=== PATIENT | female | born 1980 | race Caucasian/White ===

== ENCOUNTER 2020-10-04 15:25 | Inpatient (IN) | payer BC ==
[2020-10-04 16:39] VITALS: BMI 29.0
[2020-10-04] MEDS ORDERED: AMPICILLIN - 2 GM in SODIUM CHLORIDE 100 ML IVPB ONE (16:55)
[2020-10-04] MEDS ORDERED: DINOPROSTONE 10 MG VAGINAL SUPPOSITORY VG ONE (17:04)
[2020-10-04] MEDS ORDERED: AMPICILLIN SODIUM 2 GM VIAL ONE (17:04)
[2020-10-04] MEDS ORDERED: SODIUM CHLORIDE 100 ML IVPB ONE (17:04)
[2020-10-04] MEDS: LACTATED RINGERS SOLUTION 1,000 ML/1,000 ML INFUS.BAG IV SCH (17:22)
[2020-10-04 17:25] LABS: BASO % 0.3 % (0-2.0); EOS % 0.4 % (0-4.5); HEMATOCRIT 36.9 % (32.4-45.2); HEMOGLOBIN 12.8 GM/dL (10.7-15.3); LYMPH % 18.9 % (8-40); MCH 30.6 pg (25.7-33.7); MCHC 34.6 g/dl (32.0-36.0); MEAN CELL VOLUME 88.6 fl (80-96); MEAN PLT VOLUME 7.8 fl (7.5-11.1); MONO % 8.9 % (3.8-10.2); NEUT % 71.5 % (42.8-82.8); PLATELET COUNT 258 K/MM3 (134-434); RBC 4.17 M/mm3 (3.60-5.2); RDW 12.9 % (11.6-15.6); WHITE BLOOD COUNT 10.3 K/mm3 (4.0-10.0)
[2020-10-04 17:29] LABS: INR 0.86 (0.83-1.09); PROTHROMBIN TIME (PATIENT) 10.5 SEC (9.7-13.0)
[2020-10-04 17:32] LABS: ACTIVATED PTT 24.4 SECONDS (25.2-36.5)
[2020-10-04 17:33] LABS: POTASSIUM 3.7 mmol/L (3.5-5.1)
[2020-10-04 17:34] LABS: CALCIUM 9.1 mg/dL (8.5-10.1)
[2020-10-04 17:38] LABS: CREATININE 0.7 mg/dL (0.55-1.3)
[2020-10-04 18:29] LABS: HIV INTERPRETATION NEGATIVE (NEGATIVE)
[2020-10-04] MEDS ORDERED: AMPICILLIN SODIUM 1 GM VIAL ONE (20:57)
[2020-10-04] MEDS: AMPICILLIN - 1 GM in SODIUM CHLORIDE 100 ML IVPB SCH (21:00)
[2020-10-04] MEDS ORDERED: ZOLPIDEM TARTRATE 5 MG TABLET PO ONE (21:01)
[2020-10-04] MEDS ORDERED: levETIRAcetam 500 MG TABLET (FP) PO SCH (22:00)
[2020-10-05] MEDS ORDERED: AMPICILLIN SODIUM 1 GM VIAL ONE ×4 (00:57→13:01)
[2020-10-05] MEDS: AMPICILLIN - 1 GM in SODIUM CHLORIDE 100 ML IVPB SCH ×4 (01:00→12:50)
[2020-10-05] MEDS ORDERED: OXYTOCIN 30 UNITS in 0.9% NS 30 UNIT/500 ML INFUS.BAG IVPB ONE (05:51)
[2020-10-05] MEDS ORDERED: OXYTOCIN 30 UNITS in 0.9% NS 30 UNIT/500 ML INFUS.BAG IVPB SCH (06:15)
[2020-10-05] MEDS ORDERED: levETIRAcetam 500 MG TABLET (FP) PO SCH (07:00)
[2020-10-05] MEDS ORDERED: PCA PUMP NR ONE (07:04)
[2020-10-05] MEDS ORDERED: FENTANYL/BUPIVACAINE/NS/PF - PCEA - 50 ML DISP.SYRIN EP ONE ×2 (07:04→12:12)
[2020-10-05] MEDS ORDERED: SODIUM CHLORIDE 100 ML IVPB ONE ×2 (07:05→13:01)
[2020-10-05] MEDS ORDERED: BUPIVACAINE HCL/PF 0.25% (2.5MG/ML) 10 ML VIAL ONE (07:09)
[2020-10-05] MEDS: levETIRAcetam 500 MG TABLET (FP) PO SCH ×2 (07:15→21:55)
[2020-10-05] MEDS: FENTANYL/BUPIVACAINE/NS/PF - PCEA - 50 ML DISP.SYRIN EP SCH ×2 (07:25→12:16)
[2020-10-05] MEDS ORDERED: NALOXONE HCL 0.4 MG/ML VIAL IVPUSH PRN (07:33)
[2020-10-05] MEDS: LACTATED RINGERS SOLUTION 1,000 ML/1,000 ML INFUS.BAG IV SCH ×2 (07:45→08:57)
[2020-10-05] MEDS ORDERED: OXYTOCIN 20 UNITS in 0.9% NS 20 UNIT/1,000 ML INFUS.BAG IV ONE (11:38)
[2020-10-05] MEDS ORDERED: BENZOCAINE 28 GM HEMORRHOIDAL OINTMENT TP PRN (13:55)
[2020-10-05] MEDS ORDERED: WITCH HAZEL 50% (TUCKS) 40 PAD/JAR PAD TP PRN (13:55)
[2020-10-05] MEDS ORDERED: METHYLERGONOVINE MALEATE 0.2 MG/1 ML AMP IM PRN (13:55)
[2020-10-05] MEDS ORDERED: BENZOCAINE 20% 57 GM BOTTLE TP PRN (13:55)
[2020-10-05] MEDS ORDERED: BISACODYL 10 MG SUPP.RECT RC PRN (13:55)
[2020-10-05] MEDS ORDERED: OXYTOCIN 20 UNITS in 0.9% NS 20 UNIT/1,000 ML INFUS.BAG IV SCH (14:00)
[2020-10-05] MEDS ORDERED: ELECTROLYTE-148 SOLN 1,000 ML IV SCH (14:00)
[2020-10-05] MEDS ORDERED: FENTANYL/BUPIVACAINE/NS/PF - PCEA - 50 ML DISP.SYRIN EP SCH (14:03)
[2020-10-05] MEDS: ACETAMINOPHEN 325 MG TABLET (FP) PO PRN (17:45)
[2020-10-05] MEDS: IBUPROFEN 600 MG TABLET (FP) PO PRN (17:45)
[2020-10-06] MEDS: IBUPROFEN 600 MG TABLET (FP) PO PRN ×2 (03:13→12:27)
[2020-10-06] MEDS: ACETAMINOPHEN 325 MG TABLET (FP) PO PRN ×2 (03:14→12:28)
[2020-10-06] MEDS: levETIRAcetam 500 MG TABLET (FP) PO SCH ×2 (06:38→21:56)
[2020-10-06 07:59] LABS: BASO % 0.4 % (0-2.0); EOS % 0.5 % (0-4.5); HEMATOCRIT 34.5 % (32.4-45.2); HEMOGLOBIN 11.6 GM/dL (10.7-15.3); LYMPH % 15.3 % (8-40); MCH 30.4 pg (25.7-33.7); MCHC 33.8 g/dl (32.0-36.0); MEAN CELL VOLUME 89.9 fl (80-96); MEAN PLT VOLUME 7.6 fl (7.5-11.1); MONO % 8.3 % (3.8-10.2); NEUT % 75.5 % (42.8-82.8); PLATELET COUNT 199 K/MM3 (134-434); RBC 3.83 M/mm3 (3.60-5.2); RDW 12.9 % (11.6-15.6); WHITE BLOOD COUNT 10.4 K/mm3 (4.0-10.0)
[2020-10-06] MEDS ORDERED: SENNOSIDES/DOCUSATE COMBO (SENNA PLUS) TABLET (UD) PO PRN (22:00)
[2020-10-07] MEDS: levETIRAcetam 500 MG TABLET (FP) PO SCH (06:41)
[2020-10-07 10:01] VITALS: BP 107/66; PULSE 60; TEMP 98.5
== END 2020-10-07 11:20 | disposition home or self-care (01) | DRG 807 ==
LOC: JLDR 15:25 → J3W 10-05 15:24
PROVIDERS: ADMIT Specialist; ATTEND Specialist
PROC: 10E0XZZ Delivery of Products of Conception, External Approach (ICD-10-PCS; principal; 2020-10-05)
PROC: 0HQ9XZZ Repair Perineum Skin, External Approach (ICD-10-PCS; 2020-10-05)
DX: O99.824 Streptococcus B carrier state complicating childbirth (principal); Z37.0 Single live birth; O09.529 Supervision of elderly multigravida, unspecified trimester; O70.0 First degree perineal laceration during delivery; O66.0 Obstructed labor due to shoulder dystocia; Z3A.39 39 weeks gestation of pregnancy
CPT/HCPCS: 36415; 59409; 80048; 85025; 85610; 85730; 86780; 86850; 86900; 86901; 87389